=== PATIENT | female | born 2000 | race Caucasian/White ===

== ENCOUNTER 2019-10-17 04:34 | Inpatient (IN) | payer OTHER ==
[2019-10-13 10:22] LABS: ABSOLUTE EOSINOPHILS # (AUTO) 0.1 10^3/uL (0.0-0.6); ABSOLUTE LYMPHOCYTES (AUTO) 2.1 10^3/uL (0.5-4.7); ABSOLUTE MONOCYTES (AUTO) 0.9 10^3/uL (0.1-1.4); ABSOLUTE NEUT (AUTO) 7.9 10^3/uL (1.7-8.2); BASOPHILS % (AUTO) 0.2 % (0-2); EOSINOPHILS % (AUTO) 0.9 % (0-6); HEMATOCRIT 31.4 % (36.0-47.0); HEMOGLOBIN 10.1 g/dL (12.0-15.5); LYMPHOCYTES % (AUTO) 19.2 % (13-45); MEAN CORPUSCULAR HEMOGLOBIN 22.7 pg (27.0-33.4); MEAN CORPUSCULAR HGB CONC 32.2 g/dL (32.0-36.0); MEAN CORPUSCULAR VOLUME 70 fl (80-97); MONOCYTES % (AUTO) 7.9 % (3-13); PLATELET COUNT 169 10^3/uL (150-450); RED BLOOD COUNT 4.46 10^6/uL (3.72-5.28); RED CELL DISTRIBUTION WIDTH 15.5 % (11.5-14.0); SEGMENTED NEUTROPHILS % (AUTO) 71.8 % (42-78); TOTAL CELLS COUNTED % (AUTO) 100 %; WHITE BLOOD COUNT 11.1 10^3/uL (4.0-10.5)
[2019-10-13 10:36] LABS: APPEARANCE,URINE CLOUDY; BILIRUBIN,URINE NEGATIVE (NEGATIVE); COLOR,URINE YELLOW; GLUCOSE, URINE NEGATIVE (NEGATIVE); KETONES,URINE 20 mg/dL (NEGATIVE); LEUKOCYTE ESTERASE,URINE LARGE (NEGATIVE); NITRITE,URINE NEGATIVE (NEGATIVE); PROTEIN,URINE NEGATIVE (NEGATIVE); URINE SPECIFIC GRAVITY 1.017; UROBILINOGEN,URINE NEGATIVE mg/dL (<2.0)
[2019-10-13 10:41] LABS: URINE AMPHETAMINES SCREEN NEGATIVE; URINE BARBITURATES SCREEN NEGATIVE; URINE BENZODIAZEPINES SCREEN NEGATIVE; URINE COCAINE SCREEN NEGATIVE; URINE MARIJUANA (THC) SCREEN NEGATIVE; URINE METHADONE SCREEN NEGATIVE; URINE PHENCYCLIDINE SCREEN NEGATIVE
[2019-10-17] MEDS ORDERED: CEFAZOLIN SODIUM 2 GM in DEXTROSE 5%-WATER 100 ML IV PRN (05:00)
[2019-10-17] MEDS ORDERED: LACTATED RINGERS 1000 ML IV PRN (05:00)
[2019-10-17] MEDS ORDERED: RINGERS SOLUTION,LACTATED 1,500 ML IV PRN (05:00)
[2019-10-17] MEDS ORDERED: LIDOCAINE 0.5% INJ-PF (5 MG/ML) 50 ML SDV SUBCUT PRN (05:00)
[2019-10-17] MEDS ORDERED: EPHEDRINE SULFATE INJ 50 MG/1 ML AMPULE ONE (07:13)
[2019-10-17] MEDS ORDERED: FENTANYL CITRATE INJ/PF 100 MCG/2 ML AMPUL ONE (07:13)
[2019-10-17] MEDS ORDERED: OXYTOCIN 10 UNIT/ML VIAL ONE (07:13)
[2019-10-17] MEDS ORDERED: MIDAZOLAM 2 MG/2 ML INJ ONE (07:13)
[2019-10-17] MEDS ORDERED: KETOROLAC TROMETHAMINE INJ/PF 30 MG/1 ML SDV ONE (07:13)
[2019-10-17] MEDS ORDERED: PHENYLEPHRINE HCL INJ/PF 10 MG/1 ML SDV ONE (07:13)
[2019-10-17] MEDS ORDERED: ACETAMINOPHEN 1,000 MG/100 ML RTUPB IV ONE (07:14)
[2019-10-17] MEDS ORDERED: ONDANSETRON HCL INJ/PF 4 MG/2 ML SDV ONE (07:14)
[2019-10-17] MEDS ORDERED: METHYLERGONOVINE MALEATE INJ/PF 0.2 MG/1 ML AMPULE ONE (07:14)
[2019-10-17] MEDS ORDERED: PROMETHAZINE HCL INJ 25 MG/1 ML VIAL IV PRN ×3 (08:10→08:32)
[2019-10-17] MEDS ORDERED: FENTANYL CITRATE INJ/PF 100 MCG/2 ML AMPUL IV PRN ×3 (08:10)
[2019-10-17] MEDS ORDERED: ONDANSETRON HCL INJ/PF 4 MG/2 ML SDV IV PRN (08:10)
[2019-10-17] MEDS ORDERED: DIPHENHYDRAMINE HCL 50 MG/ML VIAL IV PRN (08:10)
[2019-10-17] MEDS ORDERED: OXYCODONE-ACETAMINOPHEN 5-325 MG TABLET PO PRN ×2 (08:10)
[2019-10-17] MEDS ORDERED: MEPERIDINE HCL/PF INJ 25 MG/1 ML DISP.SYRIN IV PRN (08:10)
[2019-10-17] MEDS ORDERED: MORPHINE SULFATE 10 MG/ML INJ IV PRN (08:10)
[2019-10-17] MEDS ORDERED: SIMETHICONE 80 MG TAB.CHEW PO PRN (08:32)
[2019-10-17] MEDS ORDERED: MORPHINE SULFATE 10 MG/ML INJ IM PRN (08:32)
[2019-10-17] MEDS ORDERED: DIPH/PERTUSS(ACELL)/TETANUS VAC/PF 0.5 ML SYR (>=10YO) IM PRN (08:32)
[2019-10-17] MEDS ORDERED: ACETAMINOPHEN 325 MG TABLET PO PRN (08:32)
[2019-10-17] MEDS ORDERED: ACETAMINOPHEN 1,000 MG/100 ML RTUPB IV PRN (08:32)
[2019-10-17] MEDS ORDERED: OXYTOCIN/NORMAL SALINE 20 UNIT/1,000 ML RTUINJ IV PRN (08:32)
[2019-10-17] MEDS ORDERED: MEASLES,MUMPS&RUBELLA VACC/PF 0.5 ML VIAL SUBCUT PRN (08:32)
--- NOTE | 2019-10-17 08:36 | PDOC DELIVERY SUMMARY ---
Delivery Summary - Maternal Hx : II Hx # Term Pregnancies: 1 ANDIE: 11/05/19 Risk Factors: Other Ruptured Membranes: AROM Fluids: Clear - Delivery Labor: Not In Labor Presentation: Vertex Heart Rate Monitoring: Done Pre-Operatively Support Person Present: Yes Location: OR : Scheduled Placenta: Within Normal Limits Number of Vessels (Cord): 3 Delivery of Placenta Date: 10/17/19 Estimated Blood Loss: 900 - Medications Type of Anesthesia:: Spinal
--- NOTE | 2019-10-17 08:40 | Operative Report ---
Operative Report DATE OF SURGERY: 10/17/19 PREOPERATIVE DIAGNOSIS: IUP at term and IUGR POSTOPERATIVE DIAGNOSIS: Same OPERATION: Repeat low transverse section delivery of viable SURGEON: ELISA [facility]I TISSUE REMOVED OR ALTERED: Placenta ESTIMATED BLOOD LOSS: 900 cc PROCEDURE: The patient was taken to the operating room where spinal anesthesia was obtai desmond and found to be adequate. She was then prepped and draped in the normal sterile fashion and placed in the dorsal supine position with a leftward tilt. A Pfannenstiel skin incision was then made and carried through to the underlying layers of the fascia with the scalpel. The fascia was incised in the midline and the incision extended laterally with the Ornelas scissors. The superior aspect of the fascial incision was then grasped with Lana clamps elevated and the underlying rectus muscles dissected off bluntly. Attention was then turned to the inferior aspect of the fascial incision which in a similar fashion was grasped, tented up with Mikki clamps, and the rectus muscles dissected off bluntly. The rectus muscles were then in the midline and the peritoneum at the amount identified and entered bluntly. The peritoneal incision was then extended superiorly and inferiorly with good visualization of the bladder. [The bladder blade was inserted and the vesicouterine peritoneum identified grasped with Cymraes pickups and entered sharply with the Metzenbaum scissors. THE incision was then extended laterally with the Metzenbaum scissors and a bladder flap created digitally. The bladder blade was then reinserted and the lower uterine segment incised in a transverse fashion with the scalpel. The uterine incision was then extended bluntly. The bladder blade was removed and the 's head was delivered from cephalic presentation atraumatically. The nose and mouth were suctioned and the cord doubly clamped and cut. And the was handed off to waiting pediatricians. The placenta was then delivered manully and the uterus exteriorized and cleared of all clots and debris. The uterine incision was then repaired with 1-0 Vicryl in a running locked fashion. A second layer of the same suture was used to obtain hemostasis via imbrication of the initial layer. Multiple 1-0 Vicryl sutures were used to control the bleeding and hemostasis was noted. The uterus was returned to the patient's abdomen. The gutters were cleared of all clots and debris. All operative sites were noted to be hemostatic. The fascia was reapproximated with 0 Vicryl in a running fashion from each lateral edge to the midline. The patient tolerated the procedure well. Sponge lap needle and instrument counts are correct -2. 2 g of Ancef were given prior to skin incisio n. The patient was taken to the recovery area awake and in stable condition.
[2019-10-17] MEDS ORDERED: MORPHINE SULFATE 10 MG/ML INJ ONE (09:33)
[2019-10-17] MEDS ORDERED: OXYTOCIN/NORMAL SALINE 20 UNIT/1,000 ML RTUINJ ONE (09:51)
[2019-10-17] MEDS: DOCUSATE SODIUM 100 MG CAPSULE PO SCH ×2 (12:37→17:45)
[2019-10-17] MEDS: PRENATAL VITAMIN W DHA CAPSULE PO SCH (12:37)
[2019-10-17] MEDS: OXYCODONE-ACETAMINOPHEN 5-325 MG TABLET PO PRN ×2 (12:53→22:56)
[2019-10-17] MEDS ORDERED: INFLUENZA QUAD (6MOS+) 2019-20 VAC 0.5 ML SYR IM ONE (13:06)
[2019-10-17] MEDS: KETOROLAC TROMETHAMINE INJ/PF 30 MG/1 ML SDV IV SCH (17:45)
[2019-10-17] MEDS: DIVALPROEX SODIUM 500 MG TAB.SR.24H PO SCH (22:35)
[2019-10-18] MEDS: KETOROLAC TROMETHAMINE INJ/PF 30 MG/1 ML SDV IV SCH (00:19)
[2019-10-18 06:25] LABS: HEMATOCRIT 25.3 % (36.0-47.0); HEMOGLOBIN 8.3 g/dL (12.0-15.5); MEAN CORPUSCULAR HEMOGLOBIN 23.7 pg (27.0-33.4); MEAN CORPUSCULAR HGB CONC 32.8 g/dL (32.0-36.0); MEAN CORPUSCULAR VOLUME 72 fl (80-97); PLATELET COUNT 141 10^3/uL (150-450)
[2019-10-18] MEDS: DIVALPROEX SODIUM 500 MG TAB.SR.24H PO SCH ×2 (09:02→21:17)
[2019-10-18] MEDS: DOCUSATE SODIUM 100 MG CAPSULE PO SCH ×2 (09:03→18:07)
[2019-10-18] MEDS: PRENATAL VITAMIN W DHA CAPSULE PO SCH (09:03)
[2019-10-18] MEDS: IBUPROFEN 800 MG TABLET PO SCH ×3 (09:03→20:27)
[2019-10-18] MEDS: OXYCODONE-ACETAMINOPHEN 5-325 MG TABLET PO PRN (09:20)
--- NOTE | 2019-10-18 10:30 | PDOC PROGRESS REPORT ---
Subjective-OB Progress Note for:: 10/18/19 Subjective: Pt doing well, has been out of bed to void without difficulty. She reports good pain control, reg diet and light bleeding. Physical Exam (OB) Vital Signs: Temp Pulse Resp BP Pulse Ox 97.8 F 75 16 104/53 L 99 10/18/19 07:42 10/18/19 07:42 10/18/19 07:42 10/18/19 07:42 10/18/19 07:42 Intake & Output 10/17/19 10/18/19 10/19/19 06:59 06:59 06:59 Intake Total 880 400 Output Total 1950 Balance -1070 400 Weight 102.1 kg - PIH/Pre-Eclampsia Headache: Absent - Dressing Removed: No Incision: Open Closure Type: Sutures - Lochia Lochia Amount: Small 10-25 ml Lochia Color: Rubra/Red - Abdomen Description: Soft, Round Hernia Present: No Fundal Description: Firm, Midline Fundal Height: u/u - u/2 Objective-Diagnostic Laboratory: 10/18/19 06:07 10/18/19 06:07 WBC 11.0 H RBC 3.50 L Hgb 8.3 L Hct 25.3 L MCV 72 L MCH 23.7 L MCHC 32.8 RDW 16.0 H Plt Count 141 L Assessment and Plan(PN) - Assessment and Plan (1) Status post repeat low transverse section Is this a current diagnosis for this admission?: Yes - Time Spent with Patient Time with patient: Less than 15 minutes Medications reviewed and adjusted accordingly: Yes - Disposition Anticipated Discharge: Home Within: within 24 hours
[2019-10-18] MEDS ORDERED: IBUPROFEN 800 MG TABLET PO SCH (12:00)
[2019-10-19] MEDS: IBUPROFEN 800 MG TABLET PO SCH ×4 (02:56→21:33)
[2019-10-19] MEDS: OXYCODONE-ACETAMINOPHEN 5-325 MG TABLET PO PRN (04:10)
[2019-10-19] MEDS: DIVALPROEX SODIUM 500 MG TAB.SR.24H PO SCH ×2 (09:19→21:34)
[2019-10-19] MEDS: DOCUSATE SODIUM 100 MG CAPSULE PO SCH ×2 (09:19→17:34)
[2019-10-19] MEDS: PRENATAL VITAMIN W DHA CAPSULE PO SCH (09:19)
--- NOTE | 2019-10-19 09:27 | PDOC PROGRESS REPORT ---
Subjective-OB Progress Note for:: 10/19/19 Subjective: 19yo G2 now P2 s/p repeat . Ambulating, voiding and passing gas without difficulty. Pain well tolerated with medication. Having some difficulty with but supplementing via SNS system. Baby not being discharged due to weight loss, requesting to stay another day. No other concerns. Physical Exam (OB) Vital Signs: Temp Pulse Resp BP Pulse Ox 98.0 F 87 18 106/58 L 99 10/19/19 07:16 10/19/19 07:16 10/19/19 07:16 10/19/19 07:16 10/19/19 07:16 Intake & Output 10/18/19 10/19/19 10/20/19 06:59 06:59 06:59 Intake Total 880 1580 Output Total 1950 Balance -1070 1580 - General General Appearance: Appears well In distress: None - PIH/Pre-Eclampsia DTR's: 1 + Clonus: Negative Headache: Absent Epigastric Pain: No Visual Changes: No - Dressing Removed: Yes Incision: Well Approximated Closure Type: internal - Lochia Lochia Amount: Scant < 10 ml Lochia Color: Rubra/Red - Abdomen Description: Tender, Soft Hernia Present: No Fundal Description: Firm Fundal Height: u/u - u/2 - Respiratory Respiratory Status: No respiratory distress - Extremities Upper extremity: Normal inspection Lower extremities: Normal inspection - Neurological Cognition: Normal Orientation: AAOx4 - Psychological Associated symptoms: Normal affect, Normal mood Objective-Diagnostic Laboratory: 10/18/19 06:07 Assessment and Plan(PN) - Assessment and Plan (1) Acute blood loss anemia Is this a current diagnosis for this admission?: Yes Plan: increase dietary iron and FeSO4 bid. Had started supplementation one week prior to delivery. (2) Anemia affecting Qualifiers: Trimester: third trimester Qualified Code(s): O99.013 - Anemia complicating , third trimester Is this a current diagnosis for this admission?: Yes Plan: Had started supplementation one week prior to delivery, continue FeSO4 BID (3) Status post repeat low transverse section Is this a current diagnosis for this admission?: Yes Plan: routine pp care, anticipate discharge tomorrow - Time Spent with Patient Time with patient: Less than 15 minutes Medications reviewed and adjusted accordingly: Yes - Disposition Anticipated Discharge: Home Within: within 24 hours
[2019-10-20] MEDS: IBUPROFEN 800 MG TABLET PO SCH ×2 (02:28→09:25)
--- NOTE | 2019-10-20 08:42 | PDOC PROGRESS REPORT ---
Subjective-OB Progress Note for:: 10/20/19 Subjective: Ready for discharge. Physical Exam (OB) Vital Signs: Temp Pulse Resp BP Pulse Ox 97.9 F 77 16 113/57 L 100 10/20/19 07:40 10/20/19 07:40 10/20/19 07:40 10/20/19 07:40 10/20/19 07:40 Intake & Output 10/19/19 10/20/19 10/21/19 06:59 06:59 06:59 Intake Total 1580 Balance 1580 - PIH/Pre-Eclampsia DTR's: 1 + Clonus: Negative Headache: Absent Epigastric Pain: No Visual Changes: No - Dressing Removed: Yes Incision: Well Approximated Closure Type: Surgical Glue - Lochia Lochia Amount: Scant < 10 ml Lochia Color: Rubra/Red - Abdomen Description: Tender, Soft Hernia Present: No Bowel Sounds: Normoactive Flatus Presence: Present Stool: No Fundal Description: Firm, Midline Fundal Height: u/u - u/2 Objective-Diagnostic Laboratory: 10/18/19 06:07 Assessment and Plan(PN) - Time Spent with Patient Medications reviewed and adjusted accordingly: Yes - Disposition Anticipated Discharge: Home
--- NOTE | 2019-10-20 08:59 | PDOC DISCHARGE SUMMARY ---
Impression - Admit/DC Date/PCP Admission Date/Primary Care Provider: 10/17/19 04:34 ELISA [facility] MD Discharge Date: 10/20/19 - Discharge Diagnosis (1) Acute blood loss anemia Is this a current diagnosis for this admission?: Yes (2) Anemia affecting Is this a current diagnosis for this admission?: Yes (4) Status post repeat low transverse section Is this a current diagnosis for this admission?: Yes - Assessment Summary: repeat day 2, stable and ready for discharge - Additional Information Resuscitation Status: Full Code Discharge Diet: As Tolerated, Regular Discharge Activity: Activity As Tolerated, Balance Activity w/Rest, No Driving, No Lifting Over 10 Pounds, No Lifting/Push/Pulling, Non-Ambulatory Child, Pelvic Rest, Slowly Increase Activity, No tub bath, Walk Frequently Referrals: [facility] [Provider Group] Prescriptions: Oxycodone HCl/Acetaminophen [Percocet 5-325 mg Tablet] 2 tab PO Q4HP PRN #20 tablet PRN Reason: Ibuprofen [Motrin 800 mg Tablet] 800 mg PO Q6A #30 tablet Home Medications: Divalproex Sodium [Depakote ER 500 mg Tab.sr] 1 tab PO Q12 10/13/19 Ferrous Sulfate [Feosol 325 mg Tablet] 1 tab PO DAILY 10/13/19 Pnv No.95/Ferrous Fum/Folic AC [ Caplet] 1 tab PO DAILY 10/13/19 Ibuprofen [Motrin 800 mg Tablet] 800 mg PO Q6A #30 tablet 10/20/19 Oxycodone HCl/Acetaminophen [Percocet 5-325 mg Tablet] 2 tab PO Q4HP PRN #20 tablet 10/20/19 HPI Gestational Age: 37 wks Reason(s) for Admission: Ceasarean Section-Repeat Procedures: Ultrasound Intrapartum Procedure(s): : Low Cervical, Transverse Results Laboratory Results: WBC 11.0 10^3/uL (4.0-10.5) H 10/18/19 06:07 RBC 3.50 10^6/uL (3.72-5.28) L 10/18/19 06:07 Hgb 8.3 g/dL (12.0-15.5) L 10/18/19 06:07 Hct 25.3 % (36.0-47.0) L 10/18/19 06:07 MCV 72 fl (80-97) L 10/18/19 06:07 MCH 23.7 pg (27.0-33.4) L 10/18/19 06:07 MCHC 32.8 g/dL (32.0-36.0) 10/18/19 06:07 RDW 16.0 % (11.5-14.0) H 10/18/19 06:07 Plt Count 141 10^3/uL (150-450) L 10/18/19 06:07 Lymph % (Auto) 19.2 % (13-45) 10/13/19 09:20 Giles % (Auto) 7.9 % (3-13) 10/13/19 09:20 Eos % (Auto) 0.9 % (0-6) 10/13/19 09:20 Baso % (Auto) 0.2 % (0-2) 10/13/19 09:20 Absolute Neuts (auto) 7.9 10^3/uL (1.7-8.2) 10/13/19 09:20 Absolute Lymphs (auto) 2.1 10^3/uL (0.5-4.7) 10/13/19 09:20 Absolute Monos (auto) 0.9 10^3/uL (0.1-1.4) 10/13/19 09:20 Absolute Eos (auto) 0.1 10^3/uL (0.0-0.6) 10/13/19 09:20 Absolute Basos (auto) 0.0 10^3/uL (0.0-0.2) 10/13/19 09:20 Seg Neutrophils % 71.8 % (42-78) 10/13/19 09:20 Urine Color YELLOW 10/13/19 09:20 Urine Appearance CLOUDY 10/13/19 09:20 Urine pH 7.0 (5.0-9.0) 10/13/19 09:20 Ur Specific Ralston 1.017 10/13/19 09:20 Urine Protein NEGATIVE mg/dL (NEGATIVE) 10/13/19 09:20 Urine Glucose (UA) NEGATIVE mg/dL (NEGATIVE) 10/13/19 09:20 Urine Ketones 20 mg/dL (NEGATIVE) H 10/13/19 09:20 Urine Blood NEGATIVE (NEGATIVE) 10/13/19 09:20 Urine Nitrite NEGATIVE (NEGATIVE) 10/13/19 09:20 Urine Bilirubin NEGATIVE (NEGATIVE) 10/13/19 09:20 Urine Urobilinogen NEGATIVE mg/dL (<2.0) 10/13/19 09:20 Ur Leukocyte Esterase LARGE (NEGATIVE) H 10/13/19 09:20 Urine WBC (Auto) 11 /HPF 10/13/19 09:20 Urine RBC (Auto) 1 /HPF 10/13/19 09:20 U Hyaline Cast (Auto) 5 /LPF 10/13/19 09:20 Urine Bacteria (Auto) 1+ /HPF 10/13/19 09:20 Squamous Epi Cells Auto 22 /HPF 10/13/19 09:20 U Non-Squamous Epis Auto <1 /HPF 10/13/19 09:20 Urine Mucus (Auto) RARE /LPF 10/13/19 09:20 Urine Ascorbic Acid NEGATIVE (NEGATIVE) 10/13/19 09:20 Urine Opiates Screen NEGATIVE 10/13/19 09:20 Urine Methadone Screen NEGATIVE 10/13/19 09:20 Ur Barbiturates Screen NEGATIVE 10/13/19 09:20 Ur Phencyclidine Scrn NEGATIVE 10/13/19 09:20 Ur Amphetamines Screen NEGATIVE 10/13/19 09:20 U Benzodiazepines Scrn NEGATIVE 10/13/19 09:20 Urine Cocaine Screen NEGATIVE 10/13/19 09:20 U Marijuana (THC) Screen NEGATIVE 10/13/19 09:20 Blood Type B POSITIVE 10/16/19 10:15 Antibody Screen NEGATIVE 10/16/19 10:15 Plan Plan of Treatment: Follow up at [facility] in 1 wk. Time Spent: Less than 30 Minutes
[2019-10-20] MEDS: PRENATAL VITAMIN W DHA CAPSULE PO SCH (09:25)
[2019-10-20] MEDS: DOCUSATE SODIUM 100 MG CAPSULE PO SCH (09:25)
[2019-10-20] MEDS: DIVALPROEX SODIUM 500 MG TAB.SR.24H PO SCH (09:25)
[2019-10-20 10:51] VITALS: BP 114/49
== END 2019-10-20 13:15 | disposition home or self-care (01) | DRG 787 ==
LOC: 2S 04:34
PROVIDERS: ADMIT Obstetrics & Gynecology Gynecology; ATTEND Obstetrics & Gynecology Gynecology
PROC: 3E0234Z Introduction of Serum, Toxoid and Vaccine into Muscle, Percutaneous Approach (ICD-10-PCS; 2019-10-17)
PROC: 10D00Z1 Extraction of Products of Conception, Low, Open Approach (ICD-10-PCS; principal; 2019-10-17 07:45)
DX: O34.219 Maternal care for unspecified type scar from previous cesarean delivery (principal); O99.354 Diseases of the nervous system complicating childbirth; D62 Acute posthemorrhagic anemia; O99.02 Anemia complicating childbirth; O34.211 Maternal care for low transverse scar from previous cesarean delivery; G43.909 Migraine, unspecified, not intractable, without status migrainosus; Z37.0 Single live birth; Z23 Encounter for immunization; Z3A.37 37 weeks gestation of pregnancy
CPT/HCPCS: 1961; 36415; 59025; 80307; 81001; 85025; 85027; 86850; 86900; 86901; 90686; 94760; 94799; J0131; J0690; J1885; J2210; J2250; J2270; J2370; J2405; J2590; J3010; J3490; J7060